=== PATIENT | male | born 1995 | race Caucasian/White ===

== ENCOUNTER 2023-12-09 09:36 | Outpatient (CLI) | payer OTHER, SELFPAY | END 2023-12-09 09:37 | disposition home or self-care (01) | LOC: INJ CL 09:39 | PROVIDERS: PCP Family Medicine; Visit Provider Family Medicine | DX: M54.16 Radiculopathy, lumbar region (principal); M51.36 Other intervertebral disc degeneration, lumbar region | CPT/HCPCS: 62323; J0702; Q9966 ==

== ENCOUNTER → 2024-09-16 15:47 | Outpatient (RCR) | payer OTHER, SELFPAY | END | disposition home or self-care (01) | LOC: WKPLHLTH 04-08 12:01 | PROVIDERS: PCP Family Medicine; Referring Provider Family Medicine; Visit Provider Family Medicine | DX: S39.92XD Unspecified injury of lower back, subsequent encounter (principal); Z51.89 Encounter for other specified aftercare; Z02.6 Encounter for examination for insurance purposes | CPT/HCPCS: 97545; 97750 ==